=== PATIENT | female | born 1970 | race Caucasian/White ===

== ENCOUNTER 2016-10-01 08:35 | Emergency (ER) | payer BC ==
[2016-10-01 08:51] VITALS: BP 137/84
--- NOTE | 2016-10-01 10:23 | UC ---
Throat Pain/Nasal Thomas HPI - HPI Summary HPI Summary: nasal congestion, cough, MCKEON, myalgias, green sputum from nose and with cough, subjective fever with hot and cold chills x 1 week. Did not have a flu shot. States her is getting sick now. No hx pneumonia. Former smoker, quit 7 years ago. - History of Current Complaint Chief Complaint: UCRespiratory Stated Complaint: SINUS Time Seen by Provider: 10/01/16 10:18 Hx Obtained From: Patient Hx Last Menstrual Period: 09/20/16 Onset/Duration: Gradual Onset, Lasting Weeks, Still Present Severity: Moderate Pain Intensity: 0 Pain Scale Used: 0-10 Numeric Cough: Sputum Appears - green Associated Signs & Symptoms: Positive: Dysphagia, Wheezing, Hoarseness, Sinus Discomfort, Nasal Discharge, Fever - subjective. Negative: Vomiting, Rash - Allergies/Home Medications Allergies/Adverse Reactions: Allergies Allergy/AdvReac Type Severity Reaction Status Date / Time No Known Allergies Allergy Verified 10/01/16 08:51 Home Medications: Home Medications Biotin 5,000 mcg PO DAILY 10/01/16 [History Confirmed 10/01/16] Sitagliptin Phosphate [Januvia] 25 mg PO DAILY 10/01/16 [History Confirmed 10/01] metFORMIN* [Glucophage 1000 MG TAB *] 2 tab PO DAILY 10/01/16 [History Confirmed 10/01/16] PMH/Surg Hx/FS Hx/Imm Hx Endocrine History Of: Reports: Diabetes - type II, Hypothyroidism - Surgical History Surgical History: Yes Surgery Procedure, Year, and Place: c-sections x 2, bowel obstruction, left knee - Family History Known Family History: Positive: Cardiac Disease - father with [place] and stents Negative: Diabetes - Social History Occupation: Employed Full-time - office Lives: With Family Alcohol Use: Occasionally Substance Use Type: None Smoking Status (MU): Former Smoker Review of Systems Constitutional: Fever, Fatigue Skin: Negative ENT: Nasal Discharge Respiratory: Cough Gastrointestinal: Negative Motor: Negative Neurovascular: Negative Musculoskeletal: Negative Neurological: Headache Psychological: Negative All Other Systems Reviewed And Are Negative: Yes Physical Exam Triage Information Reviewed: Yes Appearance: Ill-Appearing, Pain Distress, Obese Vital Signs: Initial Vital Signs Temp 98.3 F 10/01/16 08:44 Pulse 68 10/01/16 08:44 Resp 18 10/01/16 08:44 BP 137/84 10/01/16 08:44 Pulse Ox 99 10/01/16 08:44 elevated BP noted Vital Signs Reviewed: Yes Eyes: Positive: Conjunctiva Clear ENT: Positive: Pharyngeal erythema, TMs normal, Other: - sinus tenderness Neck: Positive: Supple Respiratory: Positive: Lungs clear, Normal breath sounds, No respiratory distress Cardiovascular: Positive: RRR, No Murmur, Pulses Normal, Brisk Capillary Refill Musculoskeletal: Positive: Strength Intact, ROM Intact Psychological Exam: Normal Skin Exam: Normal Throat Pain/Nasal Course/Dx - Differential Dx/Diagnosis Differential Diagnosis/HQI/PQRI: Influenza, Otitis Media, Sinusitis, Tonsillitis , URI Provider Diagnoses: 1) acute sinusitis. 2) elevated BP without dx HTN Discharge - Discharge Plan Condition: Stable Disposition: HOME Prescriptions: Amoxicillin/Clavulanate TAB* [Augmentin TAB 875*] 875 mg PO BID #20 tab Azelastine 0.15% NASAL(NF) [Astepro 0.15% NASAL (NF)] 2 spray NASAL BID PRN #1 bottle PRN Reason: Congestion Fluticasone NASAL SPRAY 50MCG* [Flonase NASAL SPRAY 50MCG*] 2 spray BOTH NARES DAILY #1 btl Patient Education Materials: Sinusitis (ED) Referrals: Josselin Farah [Primary Care Provider] - Additional Instructions: Your blood pressure was elevated today 137/84. Please be sure to have definite follow up within a month regarding this. Return to urgent care or see Dr. Farah if any new or worsening symptoms.
== END 2016-10-01 10:44 | disposition home or self-care (01) ==
LOC: UCCORT 08:35
DX: J01.90 Acute sinusitis, unspecified (principal); R03.0 Elevated blood-pressure reading, without diagnosis of hypertension; E11.9 Type 2 diabetes mellitus without complications; Z79.84 Long term (current) use of oral hypoglycemic drugs; E66.9 Obesity, unspecified; Z87.891 Personal history of nicotine dependence
CPT/HCPCS: 99202; G0463

== ENCOUNTER 2017-05-27 14:22 | Emergency (ER) | payer BC ==
--- NOTE | 2017-05-27 14:36 | UC ---
Complaint Female HPI - HPI Summary HPI Summary: 46 year old female presents with complains of urinary frequency. - History Of Current Complaint Stated Complaint: URINARY Time Seen by Provider: 05/27/17 14:35 Hx Obtained From: Patient Hx Last Menstrual Period: 09/20/16 Onset/Duration: Sudden Onset Timing: Lasting Hours Severity Initially: Moderate Severity Currently: Moderate - Allergies/Home Medications Allergies/Adverse Reactions: Allergies Allergy/AdvReac Type Severity Reaction Status Date / Time No Known Allergies Allergy Verified 05/27/17 14:38 Home Medications: Home Medications Sitagliptin-Metformin HCl [Janumet 50-1000 mg] 1 tab BEDTIME 05/27/17 [History Confirmed 05/27/17] Venlafaxine EXT RELEASE CAP* [Effexor Xr CAP*] 37.5 mg DAILY 05/27/17 [History Confirmed 05/27/17] PMH/Surg Hx/FS Hx/Imm Hx Previously Healthy: Yes - Surgical History Surgical History: Yes Surgery Procedure, Year, and Place: c-sections x 2, bowel obstruction, left knee - Family History Known Family History: Positive: Cardiac Disease - father with [place] and stents Negative: Diabetes - Social History Alcohol Use: Occasionally Substance Use Type: None Smoking Status (MU): Former Smoker Review of Systems Constitutional: Negative Skin: Negative Eyes: Negative ENT: Negative Respiratory: Negative Cardiovascular: Negative Gastrointestinal: Negative Genitourinary: Frequency, Urgency Motor: Negative Neurovascular: Negative Musculoskeletal: Negative Neurological: Negative Psychological: Negative All Other Systems Reviewed And Are Negative: Yes Physical Exam Triage Information Reviewed: Yes Vital Signs Reviewed: Yes Eye Exam: Normal ENT Exam: Normal Dental Exam: Normal Neck exam: Normal Neck: Positive: 1 Respiratory Exam: Normal Cardiovascular Exam: Normal Abdominal Exam: Normal Musculoskeletal Exam: Normal Neurological Exam: Normal Psychological Exam: Normal Skin Exam: Normal Complaint Female Dx - Differential Dx/Diagnosis Provider Diagnoses: uti. dysuria Discharge - Discharge Plan Condition: Stable Disposition: HOME Prescriptions: Nitrofurantoin Monohyd Macro [Macrobid] 100 mg PO BID PC #20 cap Patient Education Materials: Urinary Tract Infection in Women (ED) Referrals: Josselin Farah [Primary Care Provider] -
[2017-05-27 14:44] VITALS: BP 135/80
== END 2017-05-27 15:01 | disposition home or self-care (01) ==
LOC: UCCORT 14:22
DX: N39.0 Urinary tract infection, site not specified (principal); B96.1 Klebsiella pneumoniae [K. pneumoniae] as the cause of diseases classified elsewhere; Z87.891 Personal history of nicotine dependence
CPT/HCPCS: 81003; 87077; 87086; 87186; 99212; G0463

== ENCOUNTER 2017-11-07 11:27 | Day surgery (SDC) | payer OTHER ==
[~2017-11-07 11:27] MED LIST: Buffered Lidocaine 0.9% SYRIN* 5 ML/SYR SYRINGE INTRADERM ONE
[2017-11-07] MEDS ORDERED: Midazolam* 1 MG/ML 2 ML VIAL (2 MG) ONE (12:37)
[2017-11-07] MEDS ORDERED: fentaNYL* 50 MCG/ML 2 ML VIAL (100 MCG VIAL) ONE (12:37)
[2017-11-07] MEDS ORDERED: Naloxone* 0.4 MG/ML 1 ML VIAL IV PRN (13:05)
[2017-11-07] MEDS ORDERED: Bupivacaine 0.25% SDV* 30 ML ONE (13:19)
[2017-11-07] MEDS ORDERED: Propofol* 10 MG/ML 20 ML BTL IV PUSH ONE (13:29)
[2017-11-07 15:13] VITALS: BP 128/84
--- NOTE | 2017-11-08 09:13 | OP ---
DATE OF OPERATION: 11/07/17 - SDS DATE OF : [birth year] SURGEON: Saul Rosa MD UROLOGIC NURSE: None. ANESTHESIOLOGIST: Dr. Segovia ANESTHESIA: Local MAC. PRE-OP DIAGNOSIS: Right carpal tunnel syndrome. POST-OP DIAGNOSIS: Right carpal tunnel syndrome. OPERATIVE PROCEDURE: Right open carpal tunnel release. INDICATIONS: Sheryl is 47; she has progressive disease. We talked about risks and benefits. She wanted to proceed. FINDINGS: As expected. ESTIMATED BLOOD LOSS: 2 mL. COMPLICATIONS: None. DESCRIPTION OF PROCEDURE: Sheryl was seen in the preoperative holding area. The correct side, site, and procedure were identified. We came back to the operating room. The arm was prepped and draped in the usual fashion. A time- out was performed. I had infiltrated the operative site with 0.25% plain Marcaine. The arm was exsanguinated with the Esmarch and the tourniquet was inflated to 250 mmHg. A 15-blade was used to make a longitudinal incision of 2 to 3 cm in the typical location for an open carpal tunnel release. Dissection was carried down through the skin and subcutaneous tissue and palmar fascia. The transverse carpal ligament was released off the radial aspect of the hook of the hamate. The release was completed distally and proximally with the tenotomy scissors. Proximally, I released the subcutaneous tissue and palmar fascia and with a Funmilayo retractor in place to retract the tissue, I released the remainder of the transverse carpal ligament and distal antebrachial fascia with the tenotomy scissors. At this point, the release was completed. Everything looked good, so we irrigated out the wound. The skin was closed with 4-0 nylon suture. The wounds were dressed appropriately and she was brought to the recovery room in stable condition. [id number]/[facility] #: [id number] [facility] HOSPITALChad
== END 2017-11-07 15:31 | disposition home or self-care (01) ==
LOC: OR 11:27
PROVIDERS: ATTEND Orthopaedic Surgery Hand Surgery
DX: G56.01 Carpal tunnel syndrome, right upper limb (principal); E11.9 Type 2 diabetes mellitus without complications; Z79.84 Long term (current) use of oral hypoglycemic drugs; E03.9 Hypothyroidism, unspecified; Z87.891 Personal history of nicotine dependence
CPT/HCPCS: 81025; J2250; J2704; J3010

== ENCOUNTER 2017-12-01 06:50 | Day surgery (SDC) | payer OTHER ==
[2017-12-01] MEDS ORDERED: Bupivacaine 0.25% SDV* 30 ML ONE (07:10)
[2017-12-01] MEDS ORDERED: Midazolam* 1 MG/ML 2 ML VIAL (2 MG) ONE ×2 (07:39→07:43)
[2017-12-01] MEDS ORDERED: fentaNYL* 50 MCG/ML 2 ML VIAL (100 MCG VIAL) ONE (07:39)
[2017-12-01] MEDS ORDERED: Lidocaine 2% PF * 5 ML VIAL ONE (07:54)
[2017-12-01] MEDS ORDERED: Propofol* 10 MG/ML 20 ML BTL IV PUSH ONE (07:54)
[2017-12-01] MEDS ORDERED: Naloxone* 0.4 MG/ML 1 ML VIAL IV PRN (08:06)
[2017-12-01 08:15] VITALS: BP 114/87
--- NOTE | 2017-12-01 16:49 | OP ---
Operative Report - Blank - Operative Report Date of Operation: 12/01/17 Note: DATE OF OPERATION: 12/01/2017 - [facility] DATE OF : 1970 SURGEON: Saul Rosa MD [employer] MACHINE OPERATOR: JUVENAL Hoffman ANESTHESIOLOGIST: Dr. Amin. ANESTHESIA: Local MAC. PRE-OP DIAGNOSIS: Left carpal tunnel syndrome. POST-OP DIAGNOSIS: Left carpal tunnel syndrome. OPERATIVE PROCEDURE: Left open carpal tunnel release. INDICATIONS: Sheryl has progressive left carpal tunnel syndrome. We talked about risks and benefits. She wanted to proceed. ESTIMATED BLOOD LOSS: 2 mL. COMPLICATIONS: None. FINDINGS: As expected. DESCRIPTION OF PROCEDURE: Sheryl was seen in the preoperative holding area. The correct side, site and the procedure were identified. We came back to the operating room. I anesthetized the operative area with 0.25% plain Marcaine. The arm was prepped and draped in usual fashion. The arm was exsanguinated with the Esmarch and the tourniquet was inflated to 250 mmHg. I made a 2 to 3 cm longitudinal incision in the standard location for an open carpal tunnel release. Dissection was carried down through the subcutaneous tissue and palmar fascia. Transverse carpal ligament was released off the radial aspect of the hook of the hamate. The release was completed distally and proximally I released the fascia and subcutaneous tissue and retracted this volarly and ulnarly and then under direct visualization I released the remainder of the transverse carpal ligament and distal antebrachial fascia to level several centimeters proximal to the wrist flexion crease. The release at this point was complete. Everything was looking good with absolutely no compression on the nerve. I irrigated out the wound. Skin was closed with 4-0 nylon suture. Wounds were dressed appropriately and he was taken to recovery room in stable condition.
== END 2017-12-01 08:39 | disposition home or self-care (01) ==
LOC: OREAST 06:50
PROVIDERS: ATTEND Orthopaedic Surgery Hand Surgery
DX: G56.02 Carpal tunnel syndrome, left upper limb (principal); E11.9 Type 2 diabetes mellitus without complications; Z79.84 Long term (current) use of oral hypoglycemic drugs; E03.9 Hypothyroidism, unspecified; Z87.891 Personal history of nicotine dependence
CPT/HCPCS: 81025; J2250; J2704; J3010